=== PATIENT | male | born 1955 | race Caucasian/White ===

== ENCOUNTER 2019-05-16 08:47 | Emergency (ER) | payer OTHER ==
[~2019-05-16] VITALS: Ht 177.8 cm; Wt 74.8 kg
[~2019-05-16 08:47] MED LIST: ACETAMINOPHEN-1 EAC1 PO; ALPRAZOLAM 0.50.5 M1; AMBIEN 10 MG TA10 MG; ANXIETY MED; ATIVAN0.5 MG PO; ATIVAN1 MG PO; CARISOPRODOL 3350 MG PO; CELEXA40 MG; CLARITIN10 MG; CYMBALTA60 MG; DEPAKOTE 250MG250 M1; DEPAKOTE 250MG250 MG PO; DOXYCYCLINE 10100 MG PO; FLONASE 0.05%50 MCG; FOSAMAX 70 MG T70 MG; GEODON40 MG; HYDROCODON-ACE1 EAC7; INDERAL 20 MG T20 M1; LIBRIUM10 MG; LIPITOR 20 MG T20 M1 PO; LISINOPRIL-HCT1 EAC1; NORVASC5 M1 PO; OMEPRAZOLE40 MG; PRAVASTATIN SOD20 MG; PRINIVIL10 MG; PROPRANOLOL 1010 M1; SEROQUEL XR 30300 M1; SEROQUEL XR150 MG; SPIRONOLACTONE25 M1; TRAMADOL 50 MG50 MG PO; TRAZODONE; VITAMIN B-12100 MC1; XANAX2 MG; ZANAFLEX4 MG; [UNRECOGNIZED DRUG - REMARK]
[2019-05-16] MEDS ORDERED: AMBIEN 10 MG TA10 MG PO (09:04)
[2019-05-16] MEDS ORDERED: GABAPENTIN600 M1 PO (09:04)
[2019-05-16 09:13] LABS: ABSOLUTE EOSINOPHILS 0.3 thou/uL (0.0-0.7); ABSOLUTE LYMPHOCYTES 1.8 thou/uL (0.8-5.3); ABSOLUTE MONOCYTES 0.6 thou/uL (0.0-1.2); ABSOLUTE NEUTROPHILS 3.4 thou/uL (1.6-8.1); BASOPHILS 0.5 %; EOSINOPHILS 4.4 %; HEMOGLOBIN 10.7 gm/dL (14.0-18.0); LYMPHOCYTES 29.3 %; MCH 29.9 pg (26.0-34.0); MCHC 33.6 g/dL (28.0-37.0); MCV 89.2 fL (80.0-100.0); MPV 9.3 fl. (7.2-11.1); NUCLEATED RBCS 0 /100WBC; PLATELET COUNT* 231 thou/uL (150-400); POLYS 55.8 %; RBC 3.58 mil/uL (4.50-6.00); RDW-CV 13.6 % (10.5-14.5); WBC 6.1 thou/uL (4.0-11.0)
[2019-05-16 09:22] LABS: CALCIUM 8.7 mg/dL (8.5-10.1); POTASSIUM 3.7 mmol/L (3.5-5.1)
[2019-05-16 09:34] LABS: ALBUMIN 3.7 g/dL (3.4-5.0); TOTAL BILIRUBIN 0.3 mg/dL (<0.1-1.0); TOTAL PROTEIN 6.8 g/dL (6.4-8.2)
[2019-05-16 10:02] LABS: URINE BILIRUBIN NEGATIVE (Negative); URINE BLOOD TRACE (Negative); URINE CLARITY CLEAR; URINE COLOR YELLOW; URINE GLUCOSE-RANDOM NEGATIVE (Negative); URINE KETONES NEGATIVE (Negative); URINE LEUKOCYTES-REFLEX NEGATIVE (Negative); URINE NITRITE-REFLEX NEGATIVE (Negative); URINE PROTEIN NEGATIVE (Negative); URINE UROBILINOGEN 0.2 E.U./dl (0.2-1.0)
[2019-05-16] MEDS ORDERED: PYRIDIUM100 M1 PO (11:33)
[2019-05-16] MEDS ORDERED: MACROBID 100 M100 M1 PO (11:33)
[2019-05-16 11:46] VITALS: BP 117/48
== END 2019-05-16 11:47 | disposition home or self-care (01) ==
LOC: M.ERS 08:47
PROVIDERS: Personal Emergency Response Attendant
DX: N32.89 Other specified disorders of bladder (principal); R31.9 Hematuria, unspecified; I10 Essential (primary) hypertension; E11.9 Type 2 diabetes mellitus without complications; E78.5 Hyperlipidemia, unspecified

== ENCOUNTER 2020-06-24 16:38 | Emergency (ER) | payer OTHER ==
[~2020-06-24] VITALS: Ht 177.8 cm; Wt 76.2 kg
[~2020-06-24 16:38] MED LIST changes: +AMBIEN 10 MG TA10 MG PO; -DEPAKOTE 250MG250 M1; +DEPAKOTE 250MG250 M1 PO; +GABAPENTIN600 M1 PO; +MACROBID 100 M100 M1 PO; +PYRIDIUM100 M1 PO
[2020-06-24] MEDS ORDERED: FLOMAX0.4 MG PO (16:56)
[2020-06-24] MEDS ORDERED: PROSCAR 5MG TABL5 M1 PO (16:57)
[2020-06-24] MEDS ORDERED: LEXAPRO20 MG PO (16:57)
[2020-06-24] MEDS ORDERED: HYDROCODON-ACE1 EAC7 PO (18:34)
[2020-06-24] MEDS ORDERED: KEFLEX500 M1 PO (18:34)
[2020-06-24 18:59] VITALS: BP 156/60
== END 2020-06-24 18:59 | disposition home or self-care (01) ==
LOC: M.ERS 16:38
DX: S61.211A Laceration without foreign body of left index finger without damage to nail, initial encounter (principal); S61.213A Laceration without foreign body of left middle finger without damage to nail, initial encounter; I10 Essential (primary) hypertension; E11.9 Type 2 diabetes mellitus without complications; E78.5 Hyperlipidemia, unspecified; W26.8XXA Contact with other sharp object(s), not elsewhere classified, initial encounter; Y93.89 Activity, other specified; Y92.89 Other specified places as the place of occurrence of the external cause; Y99.8 Other external cause status